=== PATIENT | female | born 1970 | race Caucasian/White ===

== ENCOUNTER 2019-01-09 09:00 | Day surgery (SDC) | payer OTHER ==
[2019-01-09] MEDS ORDERED: GLYCOPYRROLATE 0.4 MG INJ (11:14)
[2019-01-09] MEDS ORDERED: LIDOCAINE 100 MG SYRINGE (11:14)
[2019-01-09] MEDS ORDERED: PROPOFOL 40 ML (11:14)
== END 2019-01-09 13:37 | disposition home or self-care (01) ==
LOC: GIL 09:00
DX: R19.4 Change in bowel habit (principal); K64.8 Other hemorrhoids; K44.9 Diaphragmatic hernia without obstruction or gangrene; K21.9 Gastro-esophageal reflux disease without esophagitis
CPT/HCPCS: 43239; 84703; 88305; 88312